=== PATIENT | female | born 1955 | race Caucasian/White ===

== ENCOUNTER 2016-09-09 18:05 | Emergency (ER) | payer OTHER ==
[~2016-09-09] VITALS: Ht 182.9 cm; Wt 90.7 kg
[2016-09-09 18:11] VITALS: BP 150/83
--- NOTE | 2016-09-09 18:38 | ED DYSPNEA/ASTHMA COMPLAINT ---
History of Present Illness General Chief Complaint: Upper Respiratory Sx/Fever Stated Complaint: SENT BY URGENT CARE TO R/O PNA Source: patient Exam Limitations: no limitations Vital Signs & Intake/Output Vital Signs & Intake/Output Vital Signs Date Time Temp Pulse Resp B/P Pulse O2 O2 Flow FiO2 Ox Delivery Rate 09/09 1921 Room Air 09/09 1810 99.6 108 16 150/83 97 Room Air ED Intake and Output 09/10 0000 09/09 1200 Intake Total Output Total Balance Patient 200 lb Weight Allergies Coded Allergies: phenytoin (From DILANTIN) (RASH/SHAKES 09/09/16) sulfamethoxazole (From BACTRIM) (RASH/SHAKING 09/09/16) trimethoprim (From BACTRIM) (RASH/SHAKING 09/09/16) Reconcile Medications Albuterol Sulfate (Ventolin Hfa) 90 MCG HFA.AER.AD 2 PUF INH Q4-6 PRN PRN SHORTNESS OF BREATH Azithromycin (Zithromax) 500 MG TABLET 1 TAB PO DAILY PNEUMONIA Benzonatate (Tessalon Perle) 100 MG CAPSULE 1 CAP PO TID PRN COUGH Robitussin AC (Guaifenesin-Codeine Syrup) 200 MG-20 MG/10 ML LIQUID 10 ML PO TID PRN COUGH Triage Note: PT SENT IN BY URGENT CARE FOR COUGH AND TO R/O PNA. PT STATES SHE IS COUGHING WITH YELLOW/BROWN SPUTUM. PT STATES IT JUST TURNED COLOR TODAY, BEFORE TODAY HER SPUTUM WAS CLEAR. Triage Nurses Notes Reviewed? yes Onset: Gradual Duration: getting worse Timing: recent history Severity: moderate Activities at Onset: activity Prior Episodes/Possible Cause: occasional episodes HPI: Patient is a 60-year-old female who presents emergency room stating that for the past week she has been complaining of prodromal symptoms of not feeling well low -grade fever and nonproductive cough and congestion and today patient has been complaining of severe productive yellow cough general weakness and fatigue fevers and shortness of breath. Patient has had multiple episodes of coughing which patient was seen by urgent care facility today and advised patient to present to emergency room for chest x-ray. Patient has been taking Mucinex and nasal spray prior to arrival (JILLIAN HOLLY,BEVERLEY) Past History Travel History Traveled to [place] past 21 day No Medical History Any Pertinent Medical History? see below for history EENT: TMJ Cardiovascular: hypertension Psychiatric: anxiety, depression Surgical History Surgical History: non-contributory Psychosocial History What is your primary language Kittitian Tobacco Use: Quit >30 days ago ETOH Use: heavy use Illicit Drug Use: denies illicit drug use Family History Hx Contributory? No (BEVERLEY VAUGHN) Review of Systems Review of Systems Constitutional: Reports: see HPI, fever. EENTM: Reports: see HPI, nasal congestion. Respiratory: Reports: see HPI, cough, short of breath, sputum production. Denies: hemoptysis , stridor. Cardiovascular: Reports: no symptoms. GI: Reports: no symptoms. Genitourinary: Reports: no symptoms. Musculoskeletal: Reports: no symptoms. Skin: Reports: no symptoms. Neurological/Psychological: Reports: no symptoms. Hematologic/Endocrine: Reports: no symptoms. Immunologic/Allergic: Reports: no symptoms. All Other Systems: Reviewed and Negative (BEVERLEY VAUGHN) Physical Exam Physical Exam General Appearance: no apparent distress, alert, comfortable Respiratory: chest non-tender, no respiratory distress, crackles noted to be left posterior lung base Comments: Well-developed well-nourished person in no acute distress HEENT: Normal EENT exam, extraocular motion intact, no nystagmus. Pupils equally round and reactive to light and accommodation. Nose is atraumatic. External auditory canal and Tympanic membranes clear. Pharynx normal. No swelling or edema. Nasal congestion noted, nontender sinus Neck: Supple, no lymphadenopathy, normal range of motion without pain or tenderness Back: Nontender, no CVA tenderness. Cardiovascular: Regular rate and rhythms no murmurs rubs or gallops, normal JVP Abdomen: Soft, nontender nondistended, no appreciable organomegaly. Normal bowel sounds. No ascites Extremity: No edema, no calf tenderness to palpation, normal and equal pulses. Neuro: Alert oriented x3, motor sensory normal, Skin: No appreciable rash on exposed skin, skin is warm and dry. Psych: Mood and affect is normal, memory and judgment is normal. Core Measures ACS in differential dx? No Severe Sepsis Present: No Septic Shock Present: No (BEVERLEY VAUGHN) Progress Differential Diagnosis: asthma, AMI, bronchitis, costochondritis, CHF, COPD, musculoskeletal pain, pericarditis, pulmonary embolism, pneumonia, pneumothorax, rib fracture, unstable angina Plan of Care: Due to history of present illness and exam findings patient has suspicion of bacterial pneumonia in which patient will be given antibiotics and anti- tussive medication. Oxygen saturation 98% room air afebrile and no respiratory distress on discharge. Patient has follow-up appointment with primary care doctor on Wednesday patient is nontoxic-appearing Initial ED EKG: none (BEVERLEY VAUGHN) Departure Departure Disposition: HOME OR SELF CARE Condition: Stable Clinical Impression Primary Impression: Pneumonia Referrals: STEPHIE MAYS,VENECIA Cutler (PCP/Family) Additional Instructions: As discussed begin the prescription of azithromycin as directed for the full course. Begin a prescription for Tessalon Perles and Robitussin with codeine for cough. Continue [id number] Mucinex for your symptoms and your nasal spray for symptoms. If symptoms worsen or if he develop a new concerning symptom return to emergency room immediately. Follow-up with your established appointment with your primary care doctor on Wednesday for recheck of symptoms. Given the prescription of Ventolin for shortness of breath. Departure Forms: Customer Survey General Discharge Information Prescriptions: Current Visit Scripts Azithromycin (Zithromax) 1 TAB PO DAILY #5 TAB Benzonatate (Tessalon Perle) 1 CAP PO TID PRN COUGH #21 CAP Robitussin AC (Guaifenesin-Codeine Syrup) 10 ML PO TID PRN COUGH #120 Albuterol Sulfate (Ventolin Hfa) 2 PUF INH Q4-6 PRN PRN SHORTNESS OF BREATH #1 INHAL (BEVERLEY VAUGHN) PA/FIBROUS PLASTERER Co-Sign Statement Statement: ED Attending supervision documentation- [] I saw and evaluated the patient. I have also reviewed all the pertinent lab results and diagnostic results. I agree with the findings and the plan of care as documented in the PA's/FIBROUS PLASTERER's documentation. [X] I have reviewed the ED Record and agree with the PA's/FIBROUS PLASTERER's documentation. [] Additions or exceptions (if any) to the PAs/FIBROUS PLASTERER's note and plan are summarized below: [] (DELIO MAYS,GO) Critical Care Note Critical Care Note Critical Care Time: non-applicable (BEVERLEY VAUGHN)
[2016-09-09] MEDS ORDERED: ZITHROMAX500 M2 PO (18:59)
[2016-09-09] MEDS ORDERED: GUAIFENESIN-COD10 ML PO (18:59)
[2016-09-09] MEDS ORDERED: TESSALON PERLE100 M1 PO (18:59)
[2016-09-09] MEDS ORDERED: VENTOLIN HFA18 GM INH (19:00)
== END 2016-09-09 19:22 ==
LOC: ERH 18:05
DX: J18.9 Pneumonia, unspecified organism (principal)